=== PATIENT | male | born 1955 | race Caucasian/White ===

== ENCOUNTER 2017-03-14 15:03 | Emergency (ER) | payer BC ==
--- NOTE | 2017-03-14 15:08 | UC ---
Lower Extremity/Ankle HPI - HPI Summary HPI Summary: 61 YEAR OLD MALE PRESENTS WITH COMPLAINS OF RIGHT LEG PAIN. - History of Current Complaint Stated Complaint: RIGHT LEG PAIN Time Seen by Provider: 03/14/17 15:06 - Allergies/Home Medications Allergies/Adverse Reactions: Allergies Allergy/AdvReac Type Severity Reaction Status Date / Time Penicillins Allergy Anaphylatic Verified 03/14/17 15:10 Shock PMH/Surg Hx/FS Hx/Imm Hx Previously Healthy: Yes Review of Systems Constitutional: Negative Skin: Negative Eyes: Negative ENT: Negative Respiratory: Negative Cardiovascular: Negative Gastrointestinal: Negative Genitourinary: Negative Motor: Negative Neurovascular: Negative Musculoskeletal: Myalgia, Other: - right lower lateral leg pain Neurological: Negative Psychological: Negative All Other Systems Reviewed And Are Negative: Yes Physical Exam Triage Information Reviewed: Yes Eye Exam: Normal ENT Exam: Normal Dental Exam: Normal Neck exam: Normal Neck: Positive: 1 Respiratory Exam: Normal Cardiovascular Exam: Normal Abdominal Exam: Normal Musculoskeletal: Positive: Other: - right lower lateral leg pain Neurological Exam: Normal Psychological Exam: Normal Skin Exam: Normal Lower Extremity Course/Dx - Differential Dx/Diagnosis Provider Diagnoses: RIGHT LEG PAIN Discharge - Discharge Plan Condition: Stable Disposition: HOME Prescriptions: Meloxicam [Mobic] 7.5 mg PO BID PC #30 tab Referrals: Suman Swenson MD [Primary Care Provider] - Jose Coleman MD [Medical Doctor] -
[2017-03-14 15:34] VITALS: BP 130/81
--- NOTE | 2017-03-14 16:35 | RAD ---
INDICATION: Right shoulder pain since falling off of a 4 acevedo 1 week earlier COMPARISON: None. TECHNIQUE: 4 views of the right shoulder were obtained. FINDINGS: The adequately corticated bones are in normal alignment. The glenohumeral joint space is maintained. Degenerative changes acromioclavicular joint include marginal osteophyte formation. No acute fracture, dislocation or focal bony abnormality is seen. IMPRESSION: DEGENERATIVE CHANGES DESCRIBED ABOVE WITHOUT RADIOGRAPHICALLY APPARENT FRACTURE OR DISLOCATION. If the patient's symptoms persist, follow-up imaging is recommended.
--- NOTE | 2017-03-14 16:38 | RAD ---
Indication: 4 weeks of right lower leg pain after falling off of a 4 acevedo. Comparison: None. Technique: AP and lateral views right lower leg. Report: The visualized bones are adequately corticated and well aligned. There is no acute fracture, dislocation or other focal abnormality. The soft tissues appear grossly normal. IMPRESSION: Normal right lower leg radiograph. If the patient's symptoms persist, follow-up imaging is recommended.
== END 2017-03-14 16:53 | disposition home or self-care (01) ==
LOC: UCCORT 15:03
DX: M79.604 Pain in right leg (principal); Z88.0 Allergy status to penicillin
CPT/HCPCS: 99202; G0463

== ENCOUNTER 2017-06-26 09:41 | Emergency (ER) | payer BC ==
[2017-06-26 10:47] VITALS: BP 141/85
--- NOTE | 2017-06-26 10:48 | UC ---
Respiratory Complaint HPI - HPI Summary HPI Summary: 61 YO MALE WITH COUGH X 2 WEEKS INITIALLY HAD F/C NO N/V/D NO CP SHORT WINDED WHEN SUPINE PRODUCTIVE COUGH IN AM NON SMOKER NO HX ASTHMA/BRONCHITIS OR PNEUMONIA - History of Current Complaint Chief Complaint: UCGeneralIllness Stated Complaint: COLD SYMPTOMS Time Seen by Provider: 06/26/17 10:30 Hx Obtained From: Patient Onset/Duration: Gradual Onset, Lasting Weeks Timing: Constant Severity Initially: Mild Severity Currently: Moderate Pain Intensity: 2 Pain Scale Used: 0-10 Numeric Character: Cough: Productive Aggravating Factors: Deep Breaths, Recumbent Position Alleviating Factors: Nothing Associated Signs And Symptoms: Positive: Fever - AT ONSET ONLY, Chills - Allergies/Home Medications Allergies/Adverse Reactions: Allergies Allergy/AdvReac Type Severity Reaction Status Date / Time Penicillins Allergy Anaphylatic Verified 06/26/17 10:23 Shock PMH/Surg Hx/FS Hx/Imm Hx Previously Healthy: Yes - Surgical History Surgical History: None - Family History Known Family History: Positive: Cardiac Disease, Hypertension, Diabetes - Social History Alcohol Use: Occasionally Alcohol Amount: 2 beers Substance Use Type: None Smoking Status (MU): Never Smoked Tobacco - Immunization History Most Recent Influenza Vaccination: 2017 Review of Systems Constitutional: Fever, Chills, Fatigue Skin: Negative Eyes: Negative ENT: Negative Respiratory: Cough Cardiovascular: Negative Gastrointestinal: Negative Genitourinary: Negative Motor: Negative Neurovascular: Negative Musculoskeletal: Negative Neurological: Negative Psychological: Negative Is Patient Immunocompromised?: No All Other Systems Reviewed And Are Negative: Yes Physical Exam Triage Information Reviewed: Yes Appearance: Well-Appearing, No Pain Distress, Well-Nourished Vital Signs: Initial Vital Signs Temp 97.8 F 06/26/17 10:23 Pulse 56 06/26/17 10:23 Resp 16 06/26/17 10:23 BP 141/85 06/26/17 10:23 Pulse Ox 98 06/26/17 10:23 Vital Signs Reviewed: Yes Eyes: Positive: Conjunctiva Clear ENT: Positive: Hearing grossly normal, Pharynx normal, Pharyngeal erythema, Uvula midline. Negative: Nasal congestion, Nasal drainage, Trismus, Muffled voice, Hoarse voice, Dental tenderness, Sinus tenderness Neck: Positive: Supple, Nontender, No Lymphadenopathy Respiratory: Positive: No respiratory distress, No accessory muscle use, Wheezing - WITH FORCED EXPIRATION Cardiovascular: Positive: RRR, No Murmur Musculoskeletal: Positive: ROM Intact, No Edema Neurological: Positive: Alert Psychological Exam: Normal Skin Exam: Normal UC Diagnostic Evaluation - Laboratory O2 Sat by Pulse Oximetry: 98 - NORMAL/NOT HYPOXIC - Radiology Xray Interpretation: No Acute Changes - Elevated lung volumes suggest potential obstructive lung disease Radiology Interpretation Completed By: Radiologist Respiratory Course/Dx - Differential Dx/Diagnosis Provider Diagnoses: ACUTE BRONCHITIS WITH BRONCHOSPASM Discharge - Discharge Plan Condition: Stable Disposition: HOME Prescriptions: Azithromycin TAB* [Zithromax TAB*] 250 mg PO DAILY #6 tab Prednisone [Deltasone] 40 mg PO DAILY #10 tab Patient Education Materials: Acute Bronchitis (ED), Bronchospasm (ED) Referrals: Suman Swenson MD [Primary Care Provider] - 6 Days (IF NOT BETTER) Additional Instructions: RECHECK FOR NEW OR WORSENING SYMPTOMS BP A LITTLE HIGH HERE BE SURE TO FOLLOW UP FOR THIS
--- NOTE | 2017-06-26 10:56 | RAD ---
INDICATION: Cough. Cold symptoms. COMPARISON: No relevant prior exams available on the [facility] PACS for comparison. TECHNIQUE: Dual energy PA and routine lateral views of the chest were obtained. REPORT: Elevated lung volumes with increased AP thoracic diameter. No focal pulmonary lesion, compelling alveolar consolidation, pleural effusion, pneumothorax. The heart, pulmonary vasculature, and mediastinal contours are unremarkable. IMPRESSION: Elevated lung volumes suggest potential obstructive lung disease. No evidence for pneumonia or presence of a focal pulmonary lesion.
[2017-06-26] MEDS ORDERED: Albuterol HFA INHALER* 8 gm MDI INH ONE (11:14)
== END 2017-06-26 11:26 | disposition home or self-care (01) ==
LOC: UCCORT 09:41
DX: J20.9 Acute bronchitis, unspecified (principal); Z88.0 Allergy status to penicillin
CPT/HCPCS: 71020; 99212; A9270-GY; G0463

== ENCOUNTER 2017-10-04 08:28 | Emergency (ER) | payer BC ==
--- OUTSIDE RECORDS SUMMARY | 2017-10-04 08:42 | XMS REPORT ---
:1955 External Reference #:[id number] Author Organization [facility] Address [address] [address] Phone [phone] Support Name Relationship Address Viki Dahl [address] [facility] [phone] [place] [address] Care Team Providers Name Role Phone Suman Swenson MD Care Team Information [employer]age [employer] Operator Unavailable Payers Type Date Identification Numbers Payment Provider Subscriber Commercial Effective: Policy Number: [id number] [facility] [employer] Esequiel Rodriguez 2012 PayID: [id number] [address] [address] [place] [address] Workers Compensation Effective: Policy Number: [employer] Esequiel Rodriguez 2012 [id number] Onset: 2012 PayID: [id number] [address] [place] [address] Problems Date Description Provider Status Onset: 07/26/2010 Disorder of lipid metabolism Suman Swenson MD Active Onset: 01/24/2010 Impotence of organic origin Suman Swenson MD Active Onset: 01/26/2009 Testicular hypofunction Suman Swenson MD Active Onset: 01/20/2008 Allergic rhinitis Suman Swenson MD Active Onset: 01/20/2008 Elevated blood-pressure reading Suman Swenson MD Active without diagnosis of hypertension Onset: 01/20/2008 FH: Diabetes mellitus Suman Swenson MD Active Onset: 01/20/2008 Obesity Suman Swenson MD Active Onset: 06/23/2015 Hearing loss Suman Swenson MD Active Onset: 06/23/2015 Benign neoplasm of colon Suman Swenson MD Active Family History Date Family Member(s) Problem(s) Comments Father due to cirrhosis () Father due to Alcoholism () Mother due to CHF () Mother due to DM2IAs () Mother due to CVA () Siblings None Social History Type Date Description Comments Marital Status Lives With Spouse Lives With Sons 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 ETOH Use Consumes 2 beers per day Smoking Patient has never smoked Allergies, Adverse Reactions, Alerts Date Description Reaction Status Severity Comments 01/20/2008 Penicillin active Anaphylactic Reaction Yrs Ago Medications Medication Date Status Form Strength Qnty SIG Indications Ordering Provider Azithromycin 09/12/ Hx Tablets 250mg 6tabs 2 tablets R05 Townsend2017 - by mouth Jose on day 1 2017 then 1 tablet on days 2-5 Prednisone 09/12/ Hx Tablets 20mg 10tabs 2 tablets R06.2 2017 - by mouth Jose for 5 days 2017 Multi For Him 01/03/ Active Capsules take one Digiovann 2016 by mouth a, every day ignacio Will MD version Vitamin B12 10/24/ Active Tablets 100mcg 1 by mouth Digiovann 2016 every day Suman deutsch MD Cialis 02/01/ Active Tablets 20mg 18tabs 1/2 or 1 Digiovann 2010 by mouth a, every day Suman, as needed MD as directed Flonase 01/19/ Active Suspension 50mcg/Act 3units 2 sprays J30.9 Jeanna 2007 each a, nostril Suman, daily as MD needed allergies H69.91 Desloratadine 01/20/2008 Active Tablets 5mg 90tabs 1 Tab po Digiovanna , Daily prn Suman Kline MD Nasal Congestion Ventolin HFA Active Aerosol 108(90 8gm 2 puffs every [place], [employer]) 4 hours as DO Jose mcg/Ac needed t Doxycycline 01/03/2017 - Hx Tablets 100mg 2tabs 2 by mouth W5 Digiovanna, Hyclate 01/04/2017 once (w/ 7. MD Suman food but not xx milk) xA Vitamin B-12 01/22/2009 - Hx Tablets 500mcg 1 po qd Digiovanna, 11/21/2014 Suman Kline MD Immunizations CPT Code Status Date Vaccine Reaction Lot # [id number] Given 05/18/2017 Afluria Imunization Q2035 Given 06/17/2016 Afluria Imunization 53325 Given 05/07/2015 Influenza Virus FIRE DEPT/ROUGH DATE Vaccine,Quadrivalent,Split,Pres erv Free 3 Yrs+ 57563 Given 05/14/2014 Afluria Or Fluvirin Flu Vac Intramuscular 35686 Given 05/27/2013 Afluria Or Fluvirin Flu Vac [facility] Intramuscular 03794 Given 07/03/2012 Afluria Or Fluvirin Flu Vac [facility] Intramuscular 91736 Given 05/26/2010 Afluria Or Fluvirin Flu Vac [facility] Intramuscular 60004 Given 03/19/2008 Tdap (Adacel) Ages 7 And Above Only Vital Signs Date Vital Result Comment 09/12/2017 Body Temperature 97.8 F Weight 222.00 lb with boots on Heart Rate 52 /min BP Systolic 140 mmHg BP Diastolic 86 mmHg Respiratory Rate 16 /min O2 % BldC Oximetry 98 % on room air 07/24/2017 Weight 213.00 lb Heart Rate 72 /min BP Systolic 120 mmHg BP Diastolic 82 mmHg Respiratory Rate 18 /min Height 64 inches 5'4" BMI (Body Mass Index) 36.6 kg/m2 01/03/2017 Weight 213.00 lb Heart Rate 74 /min BP Systolic 120 mmHg BP Diastolic 72 mmHg Respiratory Rate 18 /min Height 64 inches 5'4" BMI (Body Mass Index) 36.6 kg/m2 10/24/2016 Body Temperature 97.0 F Weight 213.00 lb Heart Rate 74 /min BP Systolic 120 mmHg BP Diastolic 80 mmHg Respiratory Rate 18 /min Height 64 inches 5'4" BMI (Body Mass Index) 36.6 kg/m2 07/19/2016 Weight 204.00 lb Heart Rate 72 /min BP Systolic 120 mmHg BP Diastolic 80 mmHg Respiratory Rate 18 /min Height 64 inches 5'4" BMI (Body Mass Index) 35.0 kg/m2 06/23/2015 Weight 207.00 lb Heart Rate 56 /min BP Systolic 138 mmHg L/Reg BP Diastolic 92 mmHg L/Reg BP Systolic Recheck 130 mmHg L seated BP Diastolic Recheck 86 mmHg L seated Respiratory Rate 18 /min Height 64 inches 5'4" BMI (Body Mass Index) 35.5 kg/m2 03/04/2013 Weight 210.50 lb Down 8# Heart Rate 68 /min BP Systolic 116 mmHg L/LG BP Diastolic 82 mmHg L/LG Respiratory Rate 19 /min Height 64.3 inches 5'4.30" -201209/02/2012 BP Systolic 130 mmHg L seated BP Diastolic 80 mmHg L seated 09/02/2012 Weight 218.00 lb Heart Rate 72 /min BP Systolic 138 mmHg L/LG BP Diastolic 82 mmHg L/LG Respiratory Rate 16 /min Height 64.3 inches 5'4.30" 08/07/2012 Weight 216.56 lb Heart Rate 78 /min BP Systolic 130 mmHg BP Diastolic 80 mmHg Respiratory Rate 18 /min 04/25/2012 Weight 224.00 lb Down 4# Heart Rate 64 /min BP Systolic 128 mmHg L/LG BP Diastolic 90 mmHg L/LG Respiratory Rate 19 /min Height 64.6 inches 5'4.60" 02/12/2012 BP Systolic 140 mmHg L seated BP Diastolic 92 mmHg L seated 02/12/2012 Weight 228.00 lb Up 2# Heart Rate 52 /min BP Systolic 140 mmHg L/LG BP Diastolic 94 mmHg L/LG Respiratory Rate 18 /min Height 64.6 inches 5'4.60" 08/14/2011 Weight 226.19 lb Heart Rate 74 /min BP Systolic 130 mmHg BP Diastolic 72 mmHg Respiratory Rate 18 /min Height 64.6 inches 5'4.60" 02/01/2011 Weight 222.00 lb Down 5# Heart Rate 72 /min BP Systolic 128 mmHg L/LG BP Diastolic 82 mmHg L/LG Respiratory Rate 16 /min Height 64.6 inches 5'4.60" 07/26/2010 BP Systolic 132 mmHg BP Diastolic 88 mmHg 07/26/2010 Weight 227.00 lb Up 5# Heart Rate 58 /min BP Systolic 144 mmHg L/LG BP Diastolic 98 mmHg L/LG Respiratory Rate 15 /min 01/24/2010 Weight 222.00 lb Heart Rate 72 /min BP Systolic 122 mmHg r arm BP Diastolic 78 mmHg r arm Respiratory Rate 18 /min Height 64 inches 5'4" 01/22/2009 BP Systolic 132 mmHg R seated BP Diastolic 84 mmHg R seated 01/22/2009 Weight 217.00 lb Down 4# Heart Rate 72 /min BP Systolic 128 mmHg L/LG BP Diastolic 92 mmHg L/LG Respiratory Rate 13 /min Height 64 inches 5'4" 03/19/2008 Weight 221.00 lb Heart Rate 69 /min BP Systolic 120 mmHg BP Diastolic 80 mmHg Respiratory Rate 16 /min Height 64 inches 5'4" 01/20/2008 BP Systolic 130 mmHg BP Diastolic 84 mmHg 01/20/2008 Weight 219.44 lb Heart Rate 74 /min BP Systolic 134 mmHg L/LG BP Diastolic 80 mmHg L/LG Respiratory Rate 13 /min Height 64 inches 5'4" Results Test Date Test Result H/L Range Note Basic (BMP) 07/24/2017 Sodium 140 mmol/L 135-146 1 Potassium 4.5 mmol/L 3.5-5.2 Chloride# 104 mmol/L 97-110 2 Carbon Dioxide 26 mmol/L 24-34 Glucose 98 mg/dL 70-105 Creatinine 1.0 mg/dL 0.5-1.4 Calcium 9.5 mg/dL 8.5-10.2 Non Pattie Egfr >60 >60 3 Pattie Egfr >60 >60 4 Anion Gap 10 mmol/L 7-16 5 BUN 14 mg/dL 6-26 Lipid Treatment 07/24/2017 Cholesterol 191 mg/dL 50-199 Triglycerides 110 mg/dL 30-200 HDL 40 mg/dL 29-71 6 Chol/ HDL Ratio 4.8 ratio 4.0-6.7 VLDL 22 mg/dL 2-29 LDL (Calc) 129 mg/dL High 20-99 7 Alt 23 U/L 3-42 Ast 18 U/L 8-42 Laboratory test 07/24/2017 Hepatitis C Virus NON REACTIVE Non Reactive 8 finding Antibody S/[facility] PSA 0.790 ng/mL 0.000-4.000 9 Basic (BMP) 07/19/2016 Sodium 137 mmol/L 134-142 Potassium 4.5 mmol/L 3.5-5.2 Chloride 100 mmol/L 97-109 Carbon Dioxide 29 mmol/L 24-34 Glucose 92 mg/dL 70-105 BUN 18 mg/dL 6-26 Creatinine 1.1 mg/dL 0.5-1.4 Calcium 9.4 mg/dL 8.5-10.2 Anion Gap 13 mmol/L 6-14 Non Pattie Egfr >60 >60 10 Pattie Egfr >60 >60 11 Lipid 07/19/2016 Cholesterol 191 mg/dL 50-199 Triglycerides 105 mg/dL 30-200 HDL 46 mg/dL 29-71 12 Chol/ HDL Ratio 4.2 ratio 4.0-6.7 VLDL 21 mg/dL 2-29 LDL (Calc) 124 mg/dL High 20-99 13 Laboratory test finding 07/19/2016 PSA 0.620 ng/mL 0.000-4.000 14 BMP (Basic) 08/02/2015 Glucose 98 mg/dL 74-106 BUN 17 mg/dL 7-18 Creatinine 1.0 mg/dL 0.6-1.3 Glom Filtration Rate, Estimate >60 mL/min >60 If >60 mL/min >60 15 BUN/Creat 17.0 ratio Sodium 139 mmol/L 136-145 Potassium 4.5 mmol/L 3.5-5.1 Chloride 106 mmol/L 98-107 Carbon Dioxide 28 mmol/L 21-32 Anion Gap 5 mEq/L Low 8-16 Calcium 8.2 mg/dL Low 8.5-10.1 Lipid Panel 08/02/2015 Cholesterol 184 mg/dL <200 16 Triglycerides 93 mg/dL <150 17 HDL Cholesterol 43 mg/dL >40 18 LDL-Cholesterol 122 mg/dL < 100 19 Laboratory test finding 08/02/2015 Prostate Specific Antigen 0.82 ng/mL 20 Laboratory test finding 05/21/2014 Alb/Glob 1.3 ratio Albumin 3.9 g/dL 3.4-5.0 Alkaline Phosphatase 75 U/L 45-117 Anion Gap 12 mEq/L 8-16 BUN 20 mg/dL High 7-18 BUN/Creat 20.0 ratio Bilirubin,Total 0.4 mg/dL 0.2-1.0 Calcium 9.0 mg/dL 8.5-10.1 Carbon Dioxide 28 mmol/L 21-32 Chloride 105 mmol/L 98-107 Creatinine 1.0 mg/dL 0.6-1.3 Globulin 3.1 g/dL 1.9-4.3 Glom Filtration Rate, Estimate >60 mL/min >60 Glucose 123 mg/dL High 74-106 21 If >60 mL/min >60 Lipase 75 U/L 73-393 Potassium 3.7 mmol/L 3.5-5.1 SGPT/Alt 33 U/L 12-78 Sgot/Ast 18 U/L 15-37 Sodium 141 mmol/L 136-145 Total Protein 7.0 g/dL 6.4-8.2 CBS W/Automated Diff 05/21/2014 Bas% 0.2 % 0.1-1.0 Baso # 0.02 K/uL Low 0.1-0.2 Eo% 0.4 % 0.0-5.0 Eos # 0.05 K/uL 0.0-0.5 Hematocrit 46.5 % 38.0-48.0 Hemoglobin 15.9 gm/dL 12.8-17.0 Lymph # 0.86 K/uL Low 1.2-4.0 Lymph % 7.7 % Low 17.0-56.0 Mean Cell Volume 90.8 fl 80.0-96.0 Mean Corpuscular HGB 31.1 pg 27.0-33.0 Mean Corpuscular HGB Conc 34.2 g/dL 31.7-36.0 Mean Platelet Volume 11.1 fL High 6.6-10.6 [place] # 0.49 K/uL 0.0-0.6 [place] % 4.4 % 0.0-10.0 Neut# 9.78 K/uL High 1.8-7.0 Neut% 87.3 % High 33.0-73.0 Platelet Count 228 K/uL 150-400 Red Blood Count 5.12 M/uL 4.20-5.80 Red Cell Distri Width %CV 12.6 % 11.6-15.8 Red Cell Distri Width SD 41.1 fl 36-51 White Blood Count 11.2 K/uL High 3.4-10.5 Laboratory test finding 12/16/2013 Polyp Colon And/Or Rectum See Note 22 1 Updated reference range on new analyzer 2 Updated reference range on new analyzer 3 Concerning GFR Guidelines: Normal function or mild renal disease, if clinically at risk: >/=60 mL/min Moderately decreased: 30-59 Severely decreased: 15-29 Renal failure: <15 Glomerular Filtration Rate (GFR) is estimated based on the MDRD equation, which assumes a steady state for creatinine as recommended by the National Kidney Disease Education Program in conjunction with the National Institutes of Health and the National Kidney Foundation. Clinical conditions in which it may be necessary to measure GFR by using clearance methods include extremes of age and body size, severe malnutrition or obesity, diseases of skeletal muscle, paraplegia or quadriplegia, vegetarian diet, rapidly changing kidney function, and calculation of the dose of potentially toxic drugs that are excreted by the kidneys. 4 Concerning GFR Guidelines for Americans: Normal function or mild renal disease, if clinically at risk: >/=60 mL/min Moderately decreased: 30-59 Severely decreased: 15-29 Renal failure: <15 5 Updated reference range on new analyzer 6 Per NCEP ATP III Guidelines: Results lower than 40 mg/dL are suggestive of increased risk for coronary artery disease. Results > or=to 60 mg/dL are considered a negative risk factor. 7 Per NCEP ATP III Guidelines: Normal Population <130 Patients with medical conditions: CHD/DM Optimal: <100 Borderline high: 130-159 High: 160-189 Very high: >189 8 S/CO Ratio >/=1.0 is REACTIVE. S/CO <5.0 is Low Reactive. S/CO >/= 5.0 is High Reactive. Effective Mar 30, 2017 all anti-HCV reactive samples are sent for quantitative PCR confirmation. 9 Beginning 10/01/06 PSA values assayed at [facility] uses chemiluminescence methodology manufactured by [employer] for use on the DXI analyzer. Values obtained with different assay methods or kits can not be used interchangeably. Serum PSA measurement is not an absolute test for malignancy. The PSA value should be used in conjunction with information available from clinical evaluation and other diagnostic procedures. 10 Concerning GFR Guidelines: Normal function or mild renal disease, if clinically at risk: >/=60 mL/min Moderately decreased: 30-59 Severely decreased: 15-29 Renal failure: <15 Glomerular Filtration Rate (GFR) is estimated based on the MDRD equation, which assumes a steady state for creatinine as recommended by the National Kidney Disease Education Program in conjunction with the National Institutes of Health and the National Kidney Foundation. Clinical conditions in which it may be necessary to measure GFR by using clearance methods include extremes of age and body size, severe malnutrition or obesity, diseases of skeletal muscle, paraplegia or quadriplegia, vegetarian diet, rapidly changing kidney function, and calculation of the dose of potentially toxic drugs that are excreted by the kidneys. 11 Concerning GFR Guidelines for Americans: Normal function or mild renal disease, if clinically at risk: >/=60 mL/min Moderately decreased: 30-59 Severely decreased: 15-29 Renal failure: <15 12 Per NCEP ATP III Guidelines: Results lower than 40 mg/dL are suggestive of increased risk for coronary artery disease. Results > or=to 60 mg/dL are considered a negative risk factor. 13 Per NCEP ATP III Guidelines: Normal Population <130 Patients with medical conditions: CHD/DM Optimal: <100 Borderline high: 130-159 High: 160-189 Very high: >189 14 Beginning 10/01/06 PSA values assayed at [facility] uses chemiluminescence methodology manufactured by [employer] for use on the DXI analyzer. Values obtained with different assay methods or kits can not be used interchangeably. Serum PSA measurement is not an absolute test for malignancy. The PSA value should be used in conjunction with information available from clinical evaluation and other diagnostic procedures. 15 Note: Persistent reduction for 3 months or more in an eGFR <60 mL/min/1.73 m2 defines CKD. Patients with eGFR values >/=60 mL/min/1.73 m2 may also have CKD if evidence of persistent proteinuria is present. The original MDRD equation for estimated GFR is not valid for patients less than 18 years of age. Additional information may be found at www.kdoqi.org. 16 Reference Guidelines*: Desirable: ........... < 200 mg/dL Borderline High: ..... 200-239 mg/dL High: ................ >=240 mg/dL * The National Cholesterol Education Program (NCEP) 17 Reference Guidelines*: Normal: ............. < 150 mg/dL Borderline High: .... 150-199 mg/dL High: ............... 200-499 mg/dL Very High: .......... > 500 mg/dL * Source: National Cholesterol Education Program (NCEP) 18 Reference Guidelines*: Low HDL: ..... < 40 mg/dL Normal: ..... 40-60 mg/dL Desirable: ... > 60 mg/dL *The National Cholesterol Education Program(NCEP) 19 Reference Guidelines*: Optimal:........... <100 mg/dL Near Optimal....... 100-129 mg/dL Borderline High.... 130-159 mg/dL High............... 160-189 mg/dL Very High.......... >=190 mg/dL * Source: National Cholesterol Education Program (NCEP) 20 THIS ASSAY IS NOT INTENDED A CANCER SCREENING TEST The concentration of PSA in a given specimen, determined with assays from different manufacturers, can vary due to differences in assay methods and reagent specificity. Values obtained from different assay methods cannot be used interchangeably. 21 Note: Persistent reduction for 3 months or more in an eGFR <60 mL/min/ 1.73 m2 defines CKD. Patients with eGFR values >/=60 mL/min/1.73 m2 may also have CKD if evidence of persistent proteinuria is present. The original MDRD equation for estimated GFR is not valid for patients less than 18 years of age. Additional information may be found at www.kdoqi.org. 22 OPERATION/PROCEDURE Colonoscopy DIAGNOSIS: "TRANSVERSE AND SIGMOID COLON, POLYPECTOMIES": ADENOMATOUS COLONIC MUCOSA, FRAGMENTED WITH TUBULAR ARCHITECTURE. Donald GROSS "TRANSVERSE AND SIGMOID POLYPS". The specimen is received in an appropriately labeled container. This contains approximately ten rounded hall colored pieces of soft tissue measuring up to 0.5 cm.; filtered and submitted in toto within a single cassette. ARCHANA/consuelo MICROSCOPIC Sections show colonic mucosa with tubular glands lined by columnar cells with elongated and hyperchromatic nuclei. PRE OPERATIVE DIAGNOSIS History of polyps REVIEW CODE CODE: I ----- Signed Electronically signed FABIO DUGGAN MD 12/18/13 1412 ----- Procedures Date CPT Code Description Status Comment 09/12/2017 64796 Measure Blood Oxygen Level Completed Single Determination 06/23/2015 09084 Screening Hearing Test Completed 12/16/2013 Colonoscopy Completed Document: 12/16/13 - Colonoscopy 12/13/2013 Colonoscopy Completed 05/13: Dr Giraldo - - Colonoscopy 12/17: Dr Giraldo, 2 small TA polyps, IH, redo 5 y - Colonoscopy Encounters Type Date Location Provider CPT E/M Dx Office Visit 09/12/2017 9:00a [facility] [address] R05 R06.2 Office Visit 07/24/2017 8:15a [facility] [address] Z00.00 R03.0 E78.9 E66.9 J30.9 D12.6 Z12.5 Z11.59 M25.571 Office Visit 01/03/2017 3:45p [facility] [address] S20.461A W57.xxxA Office Visit 10/24/2016 9:45a [facility] [address] H69.91 Office Visit 07/19/2016 8:15a [facility] [address] Z00.00 R03.0 E78.9 E66.9 J30.9 K63.5 Z12.5 Office Visit 06/23/2015 10:00a [facility] [address] Z00.00 R03.0 E78.9 E66.9 J30.9 Z12.5 K63.5 H91.93 Plan of Care Future Appointment(s):07/25/2018 8:30 am - Suman Swenson MD at [facility]2017 - Roya Pandey PAR05 CoughNew Medication:Azithromycin 250 mgComments: Will treat with azithromycinSupportive careCall if symptoms worsen/ persistFollow up:PrnR06.2 WheezingNew Medication:Prednisone 20 mgComments:Will treat with prednisoneContinue ventolinCall with worsening/persisting symptoms
[2017-10-04 09:01] VITALS: BP 136/77
--- NOTE | 2017-10-04 09:21 | UC ---
Respiratory Complaint HPI - HPI Summary HPI Summary: COUGH X 2 DAYS COUGH IS PRODUCTIVE WITH YELLOW SPUTUM + CHEST CONGESTION, RUNNY NOSE, NO FEVER NO CHILLS NO SOB , NO CHEST PAIN - History of Current Complaint Chief Complaint: UCRespiratory Stated Complaint: CHEST CONGESTION Time Seen by Provider: 10/04/17 09:03 Hx Obtained From: Patient Onset/Duration: Gradual Onset, Lasting Days - 2, Still Present Timing: Constant Severity Initially: Moderate Severity Currently: Moderate Pain Intensity: 1 Character: Cough: Productive Aggravating Factors: Exertion, Deep Breaths Alleviating Factors: Nothing Associated Signs And Symptoms: Positive: Wheezing, URI, Nasal Congestion. Negative: Dyspnea, Fever, Chills, Pleuritic Chest Pain, Hemoptysis, Dizziness, Calf Pain, Calf Swelling - Allergies/Home Medications Allergies/Adverse Reactions: Allergies Allergy/AdvReac Type Severity Reaction Status Date / Time Penicillins Allergy Anaphylatic Verified 10/04/17 08:49 Shock Home Medications: Home Medications Albuterol HFA INHALER* [Ventolin HFA Inhaler*] 2 puff INH Q6H PRN 10/04/17 [ History Confirmed 10/04/17] Robitussin With Decongestant 1 dose PO Q6H PRN 10/04/17 [History Confirmed 10/04] PMH/Surg Hx/FS Hx/Imm Hx Previously Healthy: Yes - Surgical History Surgical History: None - Family History Known Family History: Positive: Cardiac Disease, Hypertension, Diabetes - Social History Alcohol Use: Weekly Alcohol Amount: 4 Substance Use Type: None Smoking Status (MU): Never Smoked Tobacco - Immunization History Most Recent Influenza Vaccination: 2017 Review of Systems Constitutional: Negative Skin: Negative Eyes: Negative ENT: Nasal Discharge Respiratory: Cough Cardiovascular: Negative Gastrointestinal: Negative Genitourinary: Negative Is Patient Immunocompromised?: No All Other Systems Reviewed And Are Negative: Yes Physical Exam Triage Information Reviewed: Yes Appearance: Well-Appearing, No Pain Distress, Well-Nourished Vital Signs: Initial Vital Signs Temp 98.9 F 10/04/17 08:54 Pulse 65 10/04/17 08:54 Resp 20 10/04/17 08:54 BP 136/77 10/04/17 08:54 Pulse Ox 98 10/04/17 08:54 Vital Signs Reviewed: Yes Eye Exam: Normal Eyes: Positive: Conjunctiva Clear ENT: Positive: Normal ENT inspection, Hearing grossly normal, Pharynx normal, Nasal drainage Neck exam: Normal Neck: Positive: Supple, Nontender, No Lymphadenopathy Respiratory: Positive: Chest non-tender, Lungs clear, Normal breath sounds Cardiovascular: Positive: RRR, No Murmur, Pulses Normal Skin Exam: Normal UC Diagnostic Evaluation - Laboratory O2 Sat by Pulse Oximetry: 98 Respiratory Course/Dx - Differential Dx/Diagnosis Provider Diagnoses: VIRAL BRONCHITIS Discharge - Discharge Plan Condition: Stable Disposition: HOME Prescriptions: Albuterol HFA INHALER* [Ventolin HFA Inhaler*] 1 - 2 puff INH Q6H PRN #1 mdi PRN Reason: Wheezing Benzonatate CAP* [Tessalon 100 MG CAP*] 100 mg PO TID PRN #21 cap PRN Reason: Cough Patient Education Materials: Acute Bronchitis (ED) Referrals: Suman Swenson MD [Primary Care Provider] - If Needed
== END 2017-10-04 09:24 | disposition home or self-care (01) ==
LOC: UCCORT 08:28
DX: J20.8 Acute bronchitis due to other specified organisms (principal); Z88.0 Allergy status to penicillin
CPT/HCPCS: 99212; G0463

== ENCOUNTER 2017-10-06 19:36 | Emergency (ER) | payer BC ==
[2017-10-06 19:53] VITALS: BP 134/73
[2017-10-06] MEDS ORDERED: Ipratropium 0.5MG/2.5ML NEB* 0.5 MG/2.5 ML NEB.SOLN INH ONE (20:10)
[2017-10-06] MEDS ORDERED: predniSONE TAB* 20 MG PO ONE (20:10)
[2017-10-06] MEDS ORDERED: Albuterol 2.5 MG/3 ML NEB.SOL* (0.083%) INH ONE (20:10)
[2017-10-06] MEDS ORDERED: Azithromycin TAB* 250 MG PO ONE (20:11)
--- NOTE | 2017-10-06 20:49 | UC ---
Respiratory Complaint HPI - HPI Summary HPI Summary: 62 yo male with cough/wheeze x 4-5 days ? fever MDI not helping Has been on antibiotics and steroids 3 times since 06/22 - History of Current Complaint Chief Complaint: UCRespiratory Stated Complaint: CHEST CONGESTION Time Seen by Provider: 10/06/17 20:04 Hx Obtained From: Patient Onset/Duration: Gradual Onset, Lasting Days Timing: Constant Severity Initially: Mild Severity Currently: Moderate Pain Intensity: 0 Character: Cough: Productive Aggravating Factors: Nothing Alleviating Factors: Nothing Associated Signs And Symptoms: Positive: Wheezing, Nasal Congestion - Allergies/Home Medications Allergies/Adverse Reactions: Allergies Allergy/AdvReac Type Severity Reaction Status Date / Time Penicillins Allergy Anaphylatic Verified 10/06/17 19:51 Shock PMH/Surg Hx/FS Hx/Imm Hx Previously Healthy: Yes Respiratory History: Bronchitis - Surgical History Surgical History: None - Family History Known Family History: Positive: Cardiac Disease, Hypertension, Diabetes - Social History Alcohol Use: Weekly Alcohol Amount: 4 Substance Use Type: None Smoking Status (MU): Never Smoked Tobacco - Immunization History Most Recent Influenza Vaccination: 2017 Review of Systems Constitutional: Negative Skin: Negative Eyes: Negative ENT: Negative Respiratory: Cough Cardiovascular: Negative Gastrointestinal: Negative Genitourinary: Negative Motor: Negative Neurovascular: Negative Musculoskeletal: Negative Neurological: Negative Psychological: Negative Is Patient Immunocompromised?: No All Other Systems Reviewed And Are Negative: Yes Physical Exam Triage Information Reviewed: Yes Appearance: Well-Appearing, No Pain Distress, Well-Nourished Vital Signs: Initial Vital Signs Temp 98.5 F 10/06/17 19:47 Pulse 76 10/06/17 19:47 Resp 18 10/06/17 19:47 BP 134/73 10/06/17 19:47 Pulse Ox 98 10/06/17 19:47 Vital Signs Reviewed: Yes Eyes: Positive: Conjunctiva Clear ENT: Positive: Hearing grossly normal, Nasal congestion, Sinus tenderness. Negative: Nasal drainage, Muffled voice, Hoarse voice Neck: Positive: Supple, Nontender, No Lymphadenopathy Respiratory: Positive: No respiratory distress, Wheezing Cardiovascular: Positive: RRR, No Murmur Bowel Sounds: Positive: Present Musculoskeletal Exam: Normal Neurological Exam: Normal Psychological Exam: Normal Skin Exam: Normal UC Diagnostic Evaluation - Laboratory O2 Sat by Pulse Oximetry: 98 - normal.not hypoxic Re-Evaluation - Re-Evaluation First Eval Re-Evaluation Time: 20:45 Change: Improved - lungs CTA Respiratory Course/Dx - Differential Dx/Diagnosis Provider Diagnoses: acute bronchitis with bronchospasm Discharge - Discharge Plan Condition: Stable Disposition: HOME Prescriptions: Azithromycin TAB* [Zithromax TAB*] 250 mg PO DAILY #4 tab predniSONE [Deltasone] 40 mg PO DAILY #8 tab Patient Education Materials: Acute Bronchitis (ED), Bronchospasm (ED) Referrals: Suman Swenson MD [Primary Care Provider] - As Soon As Possible (try to get in this week) Additional Instructions: return for new or worsening symptoms
== END 2017-10-06 20:58 | disposition home or self-care (01) ==
LOC: UCCORT 19:36
DX: J20.9 Acute bronchitis, unspecified (principal); Z88.0 Allergy status to penicillin
CPT/HCPCS: 99213; A9270-GY; G0463; J7512

== ENCOUNTER 2017-12-16 14:44 | Emergency (ER) | payer BC ==
[2017-12-16 15:08] VITALS: BP 145/76
--- NOTE | 2017-12-16 15:13 | UC ---
General HPI - HPI Summary HPI Summary: PT FOUND A TICK ON THE BACK OF HIS LEFT THIGHT YESTERDAY AND REMOVED IT. STATES COULD HAVE BEEN THERE FOR ONLY A COUPLE OF HOURS BUT DOES NOT KNOW HOW LONG IT WAS THERE. DENIES RASH, FEVER AND JOINT PAINS. HE WASHED THE SITE AFTER REMOVAL. - History of Current Complaint Chief Complaint: Lyudmila Stated Complaint: TICK BITE Time Seen by Provider: 12/16/17 15:06 Hx Obtained From: Patient Aggravating: NOTHING Alleviating: NOTHING Associated Signs & Symptoms: Negative: Fever - Allergy/Home Medications Allergies/Adverse Reactions: Allergies Allergy/AdvReac Type Severity Reaction Status Date / Time Penicillins Allergy Anaphylatic Verified 12/16/17 15:04 Shock PMH/Surg Hx/FS Hx/Imm Hx Previously Healthy: Yes - Surgical History Surgical History: None - Family History Known Family History: Positive: Cardiac Disease, Hypertension, Diabetes - Social History Occupation: Employed Full-time Alcohol Use: Weekly Alcohol Amount: 4 Substance Use Type: None Smoking Status (MU): Never Smoked Tobacco - Immunization History Most Recent Influenza Vaccination: 2017 Vaccination Up to Date: Yes Review of Systems Constitutional: Negative Skin: Negative Eyes: Negative ENT: Negative Respiratory: Negative Cardiovascular: Negative Gastrointestinal: Negative Genitourinary: Negative Motor: Negative Neurovascular: Negative Musculoskeletal: Negative Neurological: Negative Psychological: Negative Is Patient Immunocompromised?: No All Other Systems Reviewed And Are Negative: Yes Physical Exam Triage Information Reviewed: Yes Appearance: Well-Appearing Eyes: Positive: Conjunctiva Clear ENT: Positive: Normal ENT inspection Neck: Positive: Supple, Nontender, No Lymphadenopathy Respiratory: Positive: Lungs clear, Normal breath sounds Cardiovascular: Positive: RRR, No Murmur Abdomen Description: Positive: Nontender, No Organomegaly, Soft Bowel Sounds: Positive: Present Musculoskeletal: Positive: ROM Intact Neurological: Positive: Alert Psychological: Positive: Age Appropriate Behavior Skin Exam: Normal, Other - SMALL ABRASION BACK OF l THIGH WHERE TICK REMOVED Course/Dx - Course Course Of Treatment: NO HX HTN, I THINK BP VISIT RELATED. PT STATES WHITE COAT. - Differential Dx - Multi-Symptom Provider Diagnoses: TICK BITE LEFT THIGH Discharge - Sign-Out/Discharge Documenting (check all that apply): Discharge/Admit/Transfer - Discharge Plan Condition: Stable Disposition: HOME Prescriptions: DOXYcycline CAP(*) [DOXYcycline 100MG CAP(*)] 200 mg PO DAILY #1 cap Patient Education Materials: Tick Bite (ED) Referrals: Suman Swenson MD [Primary Care Provider] - If Needed - Billing Disposition and Condition Condition: STABLE Disposition: HOME
== END 2017-12-16 15:20 | disposition home or self-care (01) ==
LOC: UCCORT 14:44
DX: S70.362D Insect bite (nonvenomous), left thigh, subsequent encounter (principal); S70.362A Insect bite (nonvenomous), left thigh, initial encounter; W57.XXXA Bitten or stung by nonvenomous insect and other nonvenomous arthropods, initial encounter; Y93.9 Activity, unspecified; Y92.9 Unspecified place or not applicable; Z88.0 Allergy status to penicillin
CPT/HCPCS: 99212; G0463

== ENCOUNTER 2018-08-08 12:30 | Emergency (ER) | payer BC ==
[2018-08-08 15:15] VITALS: BP 147/81
--- NOTE | 2018-08-08 15:20 | UC ---
Respiratory Complaint HPI - HPI Summary HPI Summary: This 62 yr old male has the chief complaint of runny nose, sinus congestion, post nasal drip and now cough for four days. He has been using his ventolin inhaler. He denies SOB. He has had pain with coughing in his ribs. He denies fever. He is a retired fire suppression captain. - History of Current Complaint Chief Complaint: UCRespiratory Stated Complaint: COUGH Time Seen by Provider: 08/08/18 15:18 Pain Intensity: 1 - Allergies/Home Medications Allergies/Adverse Reactions: Allergies Allergy/AdvReac Type Severity Reaction Status Date / Time Penicillins Allergy Anaphylatic Verified 08/08/18 15:12 Shock Home Medications: Home Medications Albuterol HFA INHALER* [Ventolin HFA Inhaler*] 1 puff Q6HR PRN 08/08/18 [ History Confirmed 08/08/18] PMH/Surg Hx/FS Hx/Imm Hx - Surgical History Surgical History: None - Family History Known Family History: Positive: Cardiac Disease, Hypertension, Diabetes - Social History Alcohol Use: Weekly Alcohol Amount: 4 Substance Use Type: None Smoking Status (MU): Never Smoked Tobacco - Immunization History Most Recent Influenza Vaccination: 2017 Vaccination Up to Date: Yes Review of Systems All Other Systems Reviewed And Are Negative: Yes ENT: Positive: Nasal Discharge, Sinus Congestion Respiratory: Positive: Cough Is Patient Immunocompromised?: Yes Physical Exam Triage Information Reviewed: Yes Vital Signs: Initial Vital Signs Temp 98.1 F 08/08/18 15:09 Pulse 62 08/08/18 15:09 Resp 16 08/08/18 15:09 BP 147/81 08/08/18 15:09 Pulse Ox 98 08/08/18 15:09 Vital Signs Reviewed: Yes ENT: Positive: Pharyngeal erythema, Nasal congestion, Nasal drainage, TMs normal. Negative: Sinus tenderness Neck: Positive: Nontender Respiratory: Positive: Chest non-tender, Lungs clear Cardiovascular: Positive: RRR, No Murmur Abdomen Description: Negative: Distended Musculoskeletal: Positive: ROM Intact, No Edema Neurological: Positive: Alert, Muscle Tone Normal Psychological: Positive: Normal Response To Family Skin: Positive: Rashes UC Diagnostic Evaluation - Laboratory O2 Sat by Pulse Oximetry: 98 - Radiology Radiology Interpretation Completed By: Radiologist Summary of Radiographic Findings: chest xray NAD Respiratory Course/Dx - Course Course Of Treatment: 62 yr old with sinusitis, and acute bronchitis. Rx with prednisone, continue the ventolin, and Rx with biaxin. - Differential Dx/Diagnosis Provider Diagnosis: Sinusitis, Acute bronchitis, Hypertension Discharge - Sign-Out/Discharge Documenting (check all that apply): Patient Departure All imaging exams completed and their final reports reviewed: Yes - Discharge Plan Condition: Good Disposition: HOME Prescriptions: Clarithromycin TAB* [Biaxin 500 MG TAB*] 500 mg PO BID #20 tab predniSONE TAB* [Deltasone 20 MG TAB*] 40 mg PO DAILY #8 tab Patient Education Materials: Sinusitis (ED), Acute Bronchitis (ED), Hypertension (ED) Referrals: Suman Swenson MD [Primary Care Provider] - 2 Days - Billing Disposition and Condition Condition: GOOD Disposition: Home
== END 2018-08-08 16:12 | disposition home or self-care (01) ==
LOC: UCCORT 12:30
DX: J32.9 Chronic sinusitis, unspecified (principal); J20.9 Acute bronchitis, unspecified; I10 Essential (primary) hypertension; Z88.0 Allergy status to penicillin
CPT/HCPCS: 71046; 99212; G0463

== ENCOUNTER 2019-05-29 11:53 | Emergency (ER) | payer BC ==
[2019-05-29 12:11] VITALS: BP 139/87
--- NOTE | 2019-05-29 12:48 | UC ---
Bite Injury/Animal HPI - HPI Summary HPI Summary: 63-year-old male comes in with a chief complaint of a tick bite to the left upper arm. He notices the day and a pulled it out with tweezers. Is not sure how long its been in there. There is some redness around the site no bull's- eye rash no fevers no chills feels well otherwise. - History of Current Complaint Chief Complaint: UCSkin Stated Complaint: TICK CONCERN Time Seen by Provider: 05/29/19 12:18 Pain Intensity: 0 - Allergies/Home Medications Allergies/Adverse Reactions: Allergies Allergy/AdvReac Type Severity Reaction Status Date / Time Penicillins Allergy Anaphylatic Verified 05/29/19 12:12 Shock PMH/Surg Hx/FS Hx/Imm Hx Previously Healthy: Yes Respiratory History: Asthma - Surgical History Surgical History: None - Family History Known Family History: Positive: Cardiac Disease, Hypertension, Diabetes - Social History Alcohol Use: Weekly Alcohol Amount: 4 Substance Use Type: None Smoking Status (MU): Never Smoked Tobacco - Immunization History Most Recent Influenza Vaccination: 2017 Vaccination Up to Date: Yes Review of Systems All Other Systems Reviewed And Are Negative: Yes Constitutional: Positive: Negative Skin: Positive: Other - SEE HPI Eyes: Positive: Negative ENT: Positive: Negative Respiratory: Positive: Negative Cardiovascular: Positive: Negative Gastrointestinal: Positive: Negative Motor: Positive: Negative Neurovascular: Positive: Negative Musculoskeletal: Positive: Negative Neurological: Positive: Negative Psychological: Positive: Negative Is Patient Immunocompromised?: No Physical Exam Triage Information Reviewed: Yes Appearance: Well-Appearing, No Pain Distress, Well-Nourished Vital Signs: Initial Vital Signs Temp 98.7 F 05/29/19 12:05 Pulse 59 05/29/19 12:05 Resp 16 05/29/19 12:05 BP 139/87 05/29/19 12:05 Pulse Ox 96 05/29/19 12:05 Vital Signs Reviewed: Yes Eye Exam: Normal Eyes: Positive: Conjunctiva Clear Neck: Positive: Supple Respiratory: Positive: No respiratory distress Musculoskeletal: Positive: Strength Intact, ROM Intact Neurological: Positive: Alert, Muscle Tone Normal Psychological: Positive: Age Appropriate Behavior Skin: Positive: Other - On the left upper arm over the biceps is a 1 cm area of erythema. No foreign body appreciated. Bite Injury Course/Dx - Course Course Of Treatment: We discussed the signs and symptoms of Lyme disease and treatment. We'll go ahead and treat with doxycycline 200 mg by mouth and a single dose. If the rash gets larger or has any signs of Lyme disease he'll continue with doxycycline 100 mg by mouth twice a day for 14 days. - Differential Dx/Diagnosis Provider Diagnosis: Tick bite of left upper arm Discharge ED - Sign-Out/Discharge Documenting (check all that apply): Patient Departure All imaging exams completed and their final reports reviewed: No Studies - Discharge Plan Condition: Stable Disposition: HOME Prescriptions: DOXYcycline CAP(*) [DOXYcycline 100MG CAP(*)] 100 mg PO BID #30 cap Patient Education Materials: Tick Bite (ED) Referrals: Suman Swenson MD [Primary Care Provider] - Additional Instructions: FOLLOW UP WITH YOUR DOCTOR IF NOT COMPLETELY IMPROVED. The treatment of a tick bite with out any symptoms of Lyme disease is 2 pills of doxycycline 100 mg once with food. The treatment of a tick bite with symptoms of Lyme disease, such as a bull's- eye rash, bodyaches, fevers, joint aches, headache is doxycycline 100 mg twice a day for 14 days. GET REEVALUATED SOONER IF NOT IMPROVING OR YOUR CONDITION WORSENS OR ANY QUESTIONS OR CONCERNS. - Billing Disposition and Condition Condition: STABLE Disposition: Home
== END 2019-05-29 12:53 | disposition home or self-care (01) ==
LOC: UCCORT 11:53
DX: S40.862A Insect bite (nonvenomous) of left upper arm, initial encounter (principal); J45.909 Unspecified asthma, uncomplicated; Z88.0 Allergy status to penicillin; W57.XXXA Bitten or stung by nonvenomous insect and other nonvenomous arthropods, initial encounter; Y92.9 Unspecified place or not applicable
CPT/HCPCS: 99212; G0463